=== PATIENT | female | born 1960 | race Caucasian/White ===

== ENCOUNTER 2022-10-17 10:23 | Observation (INO) | payer BC ==
[2022-10-17] MEDS ORDERED: Sodium Chloride 0.9% 1000 ML 1,000 ML IV STA (11:01)
[2022-10-17] MEDS ORDERED: Sodium Chloride 0.9% 1000 ML 1,000 ML ONE (11:13)
--- NOTE | 2022-10-17 11:13 | ERPHSYRPT ---
- History of Present Illness Time Seen by Provider: 10/17/22 10:29 Source: patient Exam Limitations: no limitations Patient Subjective Stated Complaint: pt here for vomiting and feels like shes unsteady and dizzy, had a sudden onset of back left head pain that lasted for s econds. she states she has had ringing in ears for about 3 months now and is waiting on an MRI Triage Nursing Assessment: pt alert,oreinted resp easy, skin w/d/p, able to un dress self and get self in bed, slight edema to lower legs. no facial drooping Physician History: Patient here with strokelike symptoms. Patient states that she woke up with dizziness. Folic she was leaning to her left. Nausea. Patient states that she has felt unwell for a few days. Patient was recently treated for possible ear infection. Ringing in her ears. States that she has felt somewhat dizzy before today as well. No chest pain, shortness of breath, nausea, vomiting. Allergies/Adverse Reactions: Penicillins Allergy (Verified 10/17/22 11:01) Home Medications: Amlodipine Besylate [Norvasc] 5 mg PO DAILY 10/17/22 [History] Clopidogrel Bisulfate [Clopidogrel] 75 mg PO DAILY 10/17/22 [History] Dapagliflozin Propanediol [Farxiga] 1 ea DAILY 10/17/22 [History] Glipizide 10 mg [Glucotrol 10 MG] 10 mg PO DAILY 10/17/22 [History] Hydrochlorothiazide 25 mg [hydroDIURIL 25 MG] 12.5 mg PO DAILY 10/17/22 [History] Metformin HCl 500 mg [Glucophage 500 MG] 1,000 mg PO BIDWM 10/17/22 [History] Omeprazole Magnesium [Prilosec Otc] 20 mg PO DAILY 10/17/22 [History] Spironolactone 25 mg [Aldactone 25 MG] 50 mg PO DAILY 10/17/22 [History] Hx Influenza Vaccination/Date Given: Yes Hx Pneumococcal Vaccination/Date Given: Yes Immunizations Up to Date: Yes Travel Risk - International Travel Have you traveled outside of the country in past 3 weeks: No - Coronavirus Screening Are you exhibiting any of the following symptoms?: No Close contact with a COVID-19 positive Pt in past 14-21 Days: No - Vaccine Status Have you recieved a Covid-19 vaccination: Yes Bank Advisor: Moderna - Vaccination Dates Date of 2cond Vaccination (if applicable): 2020 - Review of Systems Constitutional: No Fever, No Chills Eyes: No Symptoms Ears, Nose, & Throat: No Symptoms Respiratory: No Cough, No Dyspnea Cardiac: No Chest Pain, No Edema, No Syncope Abdominal/Gastrointestinal: No Abdominal Pain, No Nausea, No Vomiting, No Diarrhea Genitourinary Symptoms: No Dysuria Musculoskeletal: No Back Pain, No Neck Pain Skin: No Rash Neurological: Dizziness, No Focal Weakness, No Sensory Changes Psychological: No Symptoms Endocrine: No Symptoms All Other Systems: Reviewed and Negative - Past Medical History Neurological History: Migraines, TIA, Other Cardiac History: Hypertension Respiratory History: No Pertinent History Endocrine Medical History: Diabetes Type II Musculoskeletal History: Arthritis Other Medical History: Pt notes undiagnosed TIA found with recent MRI after a fall at work. R hip fx 2017 - Past Surgical History Past Surgical History: No - Social History Smoking Status: Never smoker Exposure to second hand smoke: No Drug Use: none Patient Lives Alone: No - Nursing Vital Signs Nursing Vital Signs: Initial Vital Signs Temperature 98.2 F 10/17/22 11:00 Pulse Rate 79 10/17/22 11:00 Respiratory Rate 18 10/17/22 11:00 Blood Pressure 139/75 10/17/22 11:00 O2 Sat by Pulse Oximetry 97 10/17/22 11:00 Pain Scale Pain Intensity 0 - Physical Exam General Appearance: no apparent distress, alert Eye Exam: PERRL/EOMI, eyes nml inspection Ears, Nose, Throat Exam: normal ENT inspection, TMs normal, pharynx normal, moist mucous membranes Neck Exam: normal inspection, non-tender, supple, full range of motion Respiratory Exam: normal breath sounds, lungs clear, No respiratory distress Cardiovascular Exam: regular rate/rhythm, normal heart sounds, normal peripheral pulses Gastrointestinal/Abdomen Exam: soft, normal bowel sounds, No tenderness, No mass Back Exam: normal inspection, normal range of motion, No CVA tenderness, No vertebral tenderness Extremity Exam: normal inspection, normal range of motion, pelvis stable Neurologic Exam: alert, oriented x 3, cooperative, normal mood/affect, nml cerebellar function, nml station & gait, sensation nml, No motor deficits Skin Exam: normal color, warm, dry, No rash Lymphatic Exam: No adenopathy SpO2 Interpretation: normal SpO2: 97 Comments: 10/17/22 11:13 Motor: There is no pronator drift of out-stretched arms. Muscle bulk and tone are normal. Strength is full bilaterally. Reflexes: Reflexes are 2+ and symmetric at the biceps, triceps, knees, and ankles. Plantar responses are flexor. Sensory: Light touch sense are intact in bilateral upper and lower extremities. There is no sign of neglect. Coordination: Rapid alternating movements are intact. There is no dysmetria on [id number] and [id number]. There are no abnormal or extraneous movements. Romberg is absent. Gait/Stance: Posture is normal. Gait is steady with normal steps, base, arm swing, and turning. Heel and toe walking are normal. Tandem gait is normal. - Course Nursing assessment & vital signs reviewed: Yes EKG Interpreted by Me: Sinus Rhythm Ordered Tests: Active Orders 24 hr Category Date Time Status Code Status Order ROUTINE Care 10/17/22 13:21 Active EKG-ER Only STAT Care 10/17/22 11:01 Active IV Care Q6H Care 10/17/22 13:21 Active IV Insertion STAT Care 10/17/22 11:01 Active NPO (ED) STAT Care 10/17/22 11:[address] in Observation ROUTINE Care 10/17/22 13:21 Active CHEST 2 VIEWS (PA AND LAT) Stat Exams 10/17/22 11:[address] ANGIOGRAPHY NECK [CT] Stat Exams 10/17/22 11:02 Completed CTA HEAD W AND/OR WO CONTRAST [CT] Stat Exams 10/17/22 11:03 Completed MRI BRAIN W/O CONTRAST [MRI] Stat Exams 10/17/22 13:22 Ordered CBC W DIFF AM.LAB Lab 10/18/22 04:00 Ordered CBC W DIFF Stat Lab 10/17/22 11:01 Completed CMP AM.LAB Lab 10/18/22 04:00 Ordered CULTURE,URINE Stat Lab 10/17/22 12:23 Received PROTIME WITH INR Stat Lab 10/17/22 11:00 Completed PTT Stat Lab 10/17/22 11:00 Completed TROPONIN Q4H Lab 10/17/22 13:32 Received TROPONIN Q4H Lab 10/17/22 17:30 Ordered TROPONIN Q4H Lab 10/17/22 21:30 Ordered UA W/RFX UR CULTURE Stat Lab 10/17/22 12:23 Completed Transfer Order Routine Transfer 10/17/22 Ordered Medication Summary Generic Name Dose Route Start Last Admin Trade Name Elana PRN Reason Stop Dose Admin Acetaminophen 650 mg 10/17/22 13:20 Acetaminophen 325 Mg Tablet PO 11/16/22 13:19 Q4H PRN PRN PAIN AND/OR FEVER Discontinued Medications Generic Name Dose Route Start Last Admin Trade Name Elana PRN Reason Stop Dose Admin Sodium Chloride 1,000 mls @ 999 mls/hr 10/17/22 11:01 10/17/22 12:39 Sodium Chloride 0.9% 1000 Ml IV 10/17/22 12:01 Infused .Q1H1M STA Infusion Sodium Chloride Confirm 10/17/22 11:13 Sodium Chloride 0.9% 1000 Ml Administered 10/17/22 11:14 Dose 1,000 mls @ ud .ROUTE .STK-MED ONE Meclizine HCl 25 mg 10/17/22 13:20 Meclizine Hcl 25 Mg Tablet PO 10/17/22 13:21 STAT ONE Lab/Rad Data: Laboratory Result Diagrams 10/17/22 11:01 10/17/22 11:00 Laboratory Results 10/17/22 10/17/22 10/17/22 Range/Units 12:23 11:01 11:00 WBC 6.3 (4.0-10.5) x10^3/uL RBC 5.14 (4.1-5.4) x10^6/uL Hgb 13.0 (12.0-16.0) g/dL Hct 42.2 (35-47) % MCV 82.1 (78-100) fL MCH 25.3 L (26-32) pg MCHC 30.8 L (32-36) g/dL RDW 14.5 H (11.5-14.0) % Plt Count 172 (150-450) x10^3/uL MPV 11.1 H (7.5-11.0) fL Gran % 79.6 H (36.0-66.0) % Immature Gran % (Auto) 0.6 H (0.00-0.4) % Nucleat RBC Rel Count 0.0 (0.00-0.1) % Eos # (Auto) 0.08 (0-0.5) x10^3/uL Immature Gran # (Auto) 0.04 H (0.00-0.03) x10^3u/L Absolute Lymphs (auto) 0.67 L (1.0-4.6) x10^3/uL Absolute Monos (auto) 0.44 (0.0-1.3) x10^3/uL Absolute Nucleated RBC 0.00 (0.00-0.01) x10^3u/L Lymphocytes % 10.6 L (24.0-44.0) % Monocytes % 7.0 (0.0-12.0) % Eosinophils % 1.3 (0.00-5.0) % Basophils % 0.9 (0.0-0.4) % Absolute Granulocytes 5.03 (1.4-6.9) x10^3/uL Basophils # 0.06 (0-0.4) x10^3/uL PT 11.1 (9.4-12.5) SECONDS INR 1.02 (0.8-3.0) APTT 25.5 (25.1-36.5) SECONDS Sodium Direct (138-146) mmol/L Potassium (3.5-4.9) mmol/L Chloride (98-109) mmol/L Carbon Dioxide (24-29) mmol/L Venous BUN (8-26) mg/dL Creatinine (0.6-1.3) mg/dL Glucose (70-105) mg/dL Ionized Calcium (1.12-1.32) mmol/L Urine Color Yellow (Yellow) Urine Appearance Clear (Clear) Urine pH 7.0 (4.6-8.0) Ur Specific [place] >=1.030 A (1.005-1.030) Urine Protein Negative (Negative) Urine Glucose (UA) >=1000 A (Negative) mg/dL Urine Ketones 15 A (Negative) Urine Blood Negative (Negative) Urine Nitrite Negative (Negative) Urine Bilirubin Negative (Negative) Urine Urobilinogen 0.2 (0.2) mg/dL Ur Leukocyte Esterase Small A (Negative) U Hyaline Cast (Auto) NONE SEEN (0-2) /LPF Urine Microscopic RBC 0-2 (0-5) /HPF Urine Microscopic WBC 21-50 A (0-5) /HPF Ur Epithelial Cells None Seen (None Seen) /HPF Urine Bacteria Many A (None Seen) /HPF Urine Culture Reflexed YES (NO) 10/17/22 Range/Units 11:00 WBC (4.0-10.5) x10^3/uL RBC (4.1-5.4) x10^6/uL Hgb (12.0-16.0) g/dL Hct (35-47) % MCV (78-100) fL MCH (26-32) pg MCHC (32-36) g/dL RDW (11.5-14.0) % Plt Count (150-450) x10^3/uL MPV (7.5-11.0) fL Gran % (36.0-66.0) % Immature Gran % (Auto) (0.00-0.4) % Nucleat RBC Rel Count (0.00-0.1) % Eos # (Auto) (0-0.5) x10^3/uL Immature Gran # (Auto) (0.00-0.03) x10^3u/L Absolute Lymphs (auto) (1.0-4.6) x10^3/uL Absolute Monos (auto) (0.0-1.3) x10^3/uL Absolute Nucleated RBC (0.00-0.01) x10^3u/L Lymphocytes % (24.0-44.0) % Monocytes % (0.0-12.0) % Eosinophils % (0.00-5.0) % Basophils % (0.0-0.4) % Absolute Granulocytes (1.4-6.9) x10^3/uL Basophils # (0-0.4) x10^3/uL PT (9.4-12.5) SECONDS INR (0.8-3.0) APTT (25.1-36.5) SECONDS Sodium Direct 136 L (138-146) mmol/L Potassium 4.1 (3.5-4.9) mmol/L Chloride 99 (98-109) mmol/L Carbon Dioxide 26 (24-29) mmol/L Venous BUN 36 H (8-26) mg/dL Creatinine 1.0 (0.6-1.3) mg/dL Glucose 252 H (70-105) mg/dL Ionized Calcium 1.19 (1.12-1.32) mmol/L Urine Color (Yellow) Urine Appearance (Clear) Urine pH (4.6-8.0) Ur Specific [place] (1.005-1.030) Urine Protein (Negative) Urine Glucose (UA) (Negative) mg/dL Urine Ketones (Negative) Urine Blood (Negative) Urine Nitrite (Negative) Urine Bilirubin (Negative) Urine Urobilinogen (0.2) mg/dL Ur Leukocyte Esterase (Negative) U Hyaline Cast (Auto) (0-2) /LPF Urine Microscopic RBC (0-5) /HPF Urine Microscopic WBC (0-5) /HPF Ur Epithelial Cells (None Seen) /HPF Urine Bacteria (None Seen) /HPF Urine Culture Reflexed (NO) - Progress Progress: improved - Departure Departure Disposition: Observation Clinical Impression: Stroke-like episode, UTI (urinary tract infection) Condition: Stable Critical Care Time: No Referrals: COTY QUINTANILLA [Primary Care Provider] - Follow up/PCP as directed
[2022-10-17 11:25] LABS: Absolute Neutrophil Ct (ANC) 5.03 x10^3/uL (1.4-6.9); BASOPHIL % 0.9 % (0.0-0.4); Basophil (Absolute #) 0.06 x10^3/uL (0-0.4); Eosinophil % 1.3 % (0.00-5.0); Eosinophil (Absolute #) 0.08 x10^3/uL (0-0.5); Hematocrit 42.2 % (35-47); IMMATURE GRAN # 0.04 x10^3u/L (0.00-0.03); IMMATURE GRAN % 0.6 % (0.00-0.4); Lymphocyte (Absolute #) 0.67 x10^3/uL (1.0-4.6); Lymphocytes % 10.6 % (24.0-44.0); Mean Cell Volume 82.1 fL (78-100); Mean Corpuscular Hemoglobin 25.3 pg (26-32); Mean Corpuscular Hgb Concent. 30.8 g/dL (32-36); Mean Platelet Volume 11.1 fL (7.5-11.0); Monocyte (Absolute #) 0.44 x10^3/uL (0.0-1.3); Neutrophil % 79.6 % (36.0-66.0); Platelet Count 172 x10^3/uL (150-450); Red Blood Count 5.14 x10^6/uL (4.1-5.4); Red Cell Distribution Width 14.5 % (11.5-14.0); White Blood Count 6.3 x10^3/uL (4.0-10.5)
[2022-10-17] MEDS ORDERED: HOLD METFORMIN PRODUCTS FOR 48 HOURS MC SCH (11:30)
[2022-10-17 11:39] LABS: INR 1.02 (0.8-3.0); PROTIME 11.1 SECONDS (9.4-12.5); PTT 25.5 SECONDS (25.1-36.5)
[2022-10-17 11:58] LABS: ISTAT K 4.1 mmol/L (3.5-4.9); ISTAT iCA 1.19 mmol/L (1.12-1.32)
--- NOTE | 2022-10-17 12:12 | XRAY ---
CLINICAL HISTORY:PNA COMPARISON:None. TECHNIQUES:X-ray of the chest showing 2 views: PA and lateral views. FINDINGS: Radiographic examination of the chest demonstrates clear lungs. Normal configuration of the mediastinum. The melecio are normal in size and position. The cardiac size is normal. The costophrenic and cardiophrenic angles are clear. Retrocardiac and retrosternal spaces are normal. Degenerative changes are seen in the visualized spine, the rest of the bony thorax is unremarkable. IMPRESSION: No gross abnormality. Electronically Signed by: Susan Chong MD. (10/17/2022 11:07:21 SECURITY SUPERVISOR)
--- NOTE | 2022-10-17 12:42 | XRAY ---
CLINICAL HISTORY:Stroke, aneurysm COMPARISON:None. TECHNIQUES:Axial with and without contrast CTA scan of the brain was performed from the skull base to the high parietal region. DLP: [id number]. FINDINGS: Small area of encephalomalacia is seen in the right frontal lobe, adjacent to the frontal horn of right lateral ventricle, extending to the right basal ganglia region, involving the right caudate lobe and anterior limb of internal capsule. it is seen associated with gliotic changes, causing mild dilatation of right frontal horn. This likely represents chronic ischemic infarction/old lacunar infarct. Few other old lacunar infarcts are also seen in bilateral basal ganglia regions. Assemetry is noted in the size of lateral ventricles. [place]-white matter differentiation is maintained. No midline shifts or deformity. No intracerebral or extra axial hematoma. No evidence of ventricular dilatation. Normal CT appearance of the posterior fossa structures namely the cerebellar hemispheres, brainstem and cerebellar peduncles. The IACs are unremarkable. The cerebello-pontine angles are clear. The pituitary gland, the pineal gland, the optic chiasm is unremarkable. The osseous structures in the skull base are unremarkable. No definite calvarium fractures. Th scanned paranasal sinuses are clear. No abnormal enhancement seen on postcontrast images. No aneurysm seen. The internal carotid, cerebral arteries show normal caliber and course. Each carotid siphon is normal, showing no displacement or extrinsic compression. The middle and anterior cerebral arteries arise normally from the internal carotid artery on each side appear unremarkable. Basilar and bilateral posterior cerebral arteries show normal caliber. No significant area of vascular narrowing or dilatation noted. No evidence of anterovenous malformation or fistulous communication noted. IMPRESSION: No evidence of established acute territorial infarction or acute haemorrhage. Few small old /chronic ischemic infarctions/lacunar infarctions dior seen as described above. MRI brain with stroke protocol with DWI/ADC sequences suggested for further evaluation if clinically indicated. No abnormal enhancement seen on postcontrast images. ED department was informed that the Stroke is Negative. Electronically Signed by: Susan Chong MD. ( 10/17/2022 11:36:49 CARPET OR RUG LAYER HELPER)
[2022-10-17 13:13] LABS: Appearance Clear (Clear); Bacteria Many /HPF (None Seen); Bilirubin Negative (Negative); Blood Negative (Negative); Epithelial Cells None Seen /HPF (None Seen); Glucose, Urine >=1000 mg/dL (Negative); Hyaline Casts NONE SEEN /LPF (0-2); Ketones 15 (Negative); Leukocyte Esterase Small (Negative); Nitrite Negative (Negative); Protein,Urine Dip Negative (Negative); RBC 0-2 /HPF (0-5); Specific Gravity >=1.030 (1.005-1.030); Urobilinogen 0.2 mg/dL (0.2); WBC 21-50 /HPF (0-5)
[2022-10-17 13:14] LABS: ADD URINE CULTURE? YES (NO)
[2022-10-17] MEDS ORDERED: TYLENOL 325 MG PO PRN (13:20)
[2022-10-17] MEDS ORDERED: ANTIVERT 25 MG PO ONE (13:20)
[2022-10-17] MEDS ORDERED: ROCEPHIN 1 Gm-D5w 50 ml Bag** 1 G/50 ML IVPB IV STA (13:41)
--- NOTE | 2022-10-17 13:41 | XRAY ---
CLINICAL HISTORY:Vertebral artery dissection COMPARISON:None; TECHNIQUES:CTA neck with intravenous contrast administration was performed. Images were acquired in axial cuts with coronal, sagittal and 3D reconstructions. FINDINGS: The aortic arch presents smooth abreu and a normal configuration. Common origin of the brachiocephalic and left common carotid artery noted representing bovine arch normal anatomical variant. The brachio-cephalic trunk undergoes a normal division into the subclavian artery and common carotid artery. Calcified plaques are seen at carotid bulbs bilaterally, more on the left side without causing significant stenosis (less than 20%). Left calcified plaque at carotid bifurcation measures 6.8 x 5.1mm. Both common carotid arteries have otherwise normal caliber. Both carotid bifurcation occurs at the normal level. The external carotid artery and internal carotid artery on both sides have no caliber irregularity. The vessels show homogeneous intraluminal enhancement. The vertebral arteries appear unremarkable. The vertebral arteries are symmetrically disposed and take a normal course. They show normal luminal diameter with no filling defect or caliber irregularities as far as basilar artery. At C5-C6 level, the left paracentral disc osteophyte complex with hypertrophy of the uncovertebral joint is noted causing significant neural foramen narrowing. IMPRESSION: Normal CT angiography of the neck. No evidence of aneurysm or significant stenosis. Small calcified plaques are seen at carotid bulbs bilaterally, more on the left side without causing significant stenosis less than 20%. At C5-C6 level, left paracentral disc osteophyte complex with hypertrophy of the uncovertebral joint is noted causing significant left neural foramen narrowing, would recommend MRI cervical spine for further evaluation. Electronically Signed by: Susan Chong MD. (10/17/2022 12:31:36 COOLER SERVICER)
[2022-10-17] MEDS ORDERED: BABY ASPIRIN 81 MG CHEW PO ONE (14:00)
[2022-10-17] MEDS ORDERED: ANTIVERT 25 MG ONE (14:40)
[2022-10-17] MEDS ORDERED: BABY ASPIRIN 81 MG CHEW ONE (14:40)
--- NOTE | 2022-10-17 15:41 | XRAY ---
CLINICAL HISTORY:stroke like symptoms COMPARISON:None. TECHNIQUES:Multiplanarr and multiple sequence imaging of the brain was performed without IV contrast. FINDINGS: At least 3-4 tiny CSF signal intensity focal lesions are seen in the right caudate nucleus and adjacent periventricular white matter, The largest 1 of these lesions measures about 7.2 x 6.1 mm in size. Findings are consistent with perivascular spaces. There is symmetrical T2-weighted and FLAIR hyperintensity Seen in the subcortical and periventricular white matter of both frontal lobes, not showing any restricted diffusionconsistent with chronic small vessel ischemic changes. The neuro-parenchyma is otherwise normal. No acute infarct is seen as visualized on the diffusion-weighted images. No abnormal density is seen in the basal ganglia, thalami, brainstem or cerebellum. The ventricular system and subarachnoid CSF spaces are normal. No midline shift is seen. The visualized calvarium orbits and paranasal sinuses are normal. IMPRESSION: No acute infarct is noted. 3-4 tiny CSF signal intensity lesions in the right caudate nucleus and adjacent periventricular white matterperivascular spaces and gliosis. Chronic small vessel ischemic changes in bilateral frontal lobes. Electronically Signed by: Susan Chong MD. ( 10/17/2022 14:34:48 INSTRUMENTATION TECHNOLOGIST)
[2022-10-17] MEDS ORDERED: ANTIVERT 25 MG PO PRN (17:09)
--- NOTE | 2022-10-17 17:11 | PCM.HP ---
History of Present Illness - Chief Complaint Chief Complaint: STROKE LIKE SYMPTOMS, UTI History of Present Illness: is a 62 year old female patient of Dr Mcmullen experiencing intermittent vertigo for the last month, today was the 3rd episode and most severe. all 3 have occurred when she stands from sitting and she describes a true vertigo or spinning sensation and wanders to the left. she denies visual changes, no numbness, tingling or weakness in the extremities, no slurred speech or difficulty swallowing. - Review of Systems Constitutional: No Fever, No Chills Respiratory: No Cough, No Short Of Breath Cardiac: No Chest Pain, No Edema, No Syncope Abdominal/Gastrointestinal: No Abdominal Pain, No Nausea, No Vomiting, No Diarrhea Neurological: Vertigo, No Focal Weakness, No Parasthesia, No Sensory Changes, No Speech Changes All Other Systems: Reviewed and Negative Medications & Allergies Home Medications: Home Medication List Amlodipine Besylate [Norvasc] 5 mg PO DAILY 10/17/22 [History Confirmed 10/17/22] Clopidogrel Bisulfate [Clopidogrel] 75 mg PO DAILY 10/17/22 [History Confirmed 10/17/22] Dapagliflozin Propanediol [Farxiga] 10 mg PO DAILY 10/17/22 [History Confirmed 10/17/22] Glipizide 10 mg [Glucotrol 10 MG] 10 mg PO BID 10/17/22 [History Confirmed 10/17/22] Hydrochlorothiazide 25 mg [hydroDIURIL 25 MG] 12.5 mg PO DAILY 10/17/22 [History Confirmed 10/17/22] Metformin HCl 500 mg [Glucophage 500 MG] 1,000 mg PO BIDWM 10/17/22 [History Confirmed 10/17/22] Omeprazole Magnesium [Prilosec Otc] 20 mg PO DAILY 10/17/22 [History Confirmed 10/17/22] Spironolactone 25 mg [Aldactone 25 MG] 50 mg PO DAILY 10/17/22 [History Confirmed 10/17/22] Allergies/Adverse Reactions: Allergies Allergy/AdvReac Type Severity Reaction Status Date / Time Penicillins Allergy Verified 10/17/22 11:01 - Past Medical History Past Medical History: Yes Neurological History: Migraines, TIA, Other ENT History: No Pertinent History Cardiac History: Hypertension Respiratory History: No Pertinent History Endocrine Medical History: Diabetes Type II Musculoskelatal History: Arthritis GI Medical History: No Pertinent History History: No Pertinent History Pyscho-Social History: No Pertinent History Reproductive Disorders: No Pertinent History Comment: dx with polio at 9mo old. Pt notes undiagnosed TIA found with recent MRI after a fall at work. vertigo. R hip fx 2018, and femur fx - Past Surgical History Past Surgical History: Yes Neuro Surgical History: No Pertinent History Cardiac History: No Pertinent History Respiratory Surgery: No Pertinent History GI Surgical History: No Pertinent History Musculskeletal Surgical Hx: Orthopedic Surgery Female Surgical History: No Pertinent History Other Surgical History: isaac knees, R femur - Social History Smoking Status: Never smoker Exposure to second hand smoke: No Alcohol: Occasionally Drug Use: none - Physical Exam Vital Signs: Vital Signs - 24 hr Temp Pulse Resp BP BP Pulse Ox 10/17/22 16:00 98.0 F 62 16 134/66 97 10/17/22 15:01 98.0 F 62 16 134/66 97 10/17/22 15:00 98.0 F 62 16 134/66 97 10/17/22 13:42 97 10/17/22 13:33 132/80 10/17/22 13:00 98.0 F 62 16 128/69 134/66 97 10/17/22 12:30 71 13 117/81 98 10/17/22 12:00 70 17 122/73 99 10/17/22 11:37 77 14 127/86 97 10/17/22 11:00 98.2 F 76 18 139/75 139/75 97 General Appearance: no apparent distress Neurologic Exam: alert, oriented x 3, cooperative, 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 Eye Exam: PERRL/EOMI Ears, Nose, Throat Exam: other (dull tm isaac) Respiratory Exam: normal breath sounds, lungs clear, No respiratory distress Cardiovascular Exam: regular rate/rhythm, normal heart sounds, normal peripheral pulses Gastrointestinal/Abdomen Exam: soft, normal bowel sounds, No tenderness, No mass Extremity Exam: normal inspection, normal range of motion, pelvis stable Skin Exam: normal color, warm, dry, No rash Results - Labs Lab/Micro Results: Lab Results-Last 24 Hours 10/17/22 10/17/22 10/17/22 Range/Units 11:00 11:00 11:01 WBC 6.3 (4.0-10.5) x10^3/uL RBC 5.14 (4.1-5.4) x10^6/uL Hgb 13.0 (12.0-16.0) g/dL Hct 42.2 (35-47) % MCV 82.1 (78-100) fL MCH 25.3 L (26-32) pg MCHC 30.8 L (32-36) g/dL RDW 14.5 H (11.5-14.0) % Plt Count 172 (150-450) x10^3/uL MPV 11.1 H (7.5-11.0) fL Gran % 79.6 H (36.0-66.0) % Immature Gran % (Auto) 0.6 H (0.00-0.4) % Nucleat RBC Rel Count 0.0 (0.00-0.1) % Eos # (Auto) 0.08 (0-0.5) x10^3/uL Immature Gran # (Auto) 0.04 H (0.00-0.03) x10^3u/L Absolute Lymphs (auto) 0.67 L (1.0-4.6) x10^3/uL Absolute Monos (auto) 0.44 (0.0-1.3) x10^3/uL Absolute Nucleated RBC 0.00 (0.00-0.01) x10^3u/L Lymphocytes % 10.6 L (24.0-44.0) % Monocytes % 7.0 (0.0-12.0) % Eosinophils % 1.3 (0.00-5.0) % Basophils % 0.9 (0.0-0.4) % Absolute Granulocytes 5.03 (1.4-6.9) x10^3/uL Basophils # 0.06 (0-0.4) x10^3/uL PT 11.1 (9.4-12.5) SECONDS INR 1.02 (0.8-3.0) APTT 25.5 (25.1-36.5) SECONDS Sodium Direct 136 L (138-146) mmol/L Potassium 4.1 (3.5-4.9) mmol/L Chloride 99 (98-109) mmol/L Carbon Dioxide 26 (24-29) mmol/L Venous BUN 36 H (8-26) mg/dL Creatinine 1.0 (0.6-1.3) mg/dL Glucose 252 H (70-105) mg/dL Ionized Calcium 1.19 (1.12-1.32) mmol/L Troponin (0.00-0.03) ng/mL Urine Color (Yellow) Urine Appearance (Clear) Urine pH (4.6-8.0) Ur Specific [place] (1.005-1.030) Urine Protein (Negative) Urine Glucose (UA) (Negative) mg/dL Urine Ketones (Negative) Urine Blood (Negative) Urine Nitrite (Negative) Urine Bilirubin (Negative) Urine Urobilinogen (0.2) mg/dL Ur Leukocyte Esterase (Negative) U Hyaline Cast (Auto) (0-2) /LPF Urine Microscopic RBC (0-5) /HPF Urine Microscopic WBC (0-5) /HPF Ur Epithelial Cells (None Seen) /HPF Urine Bacteria (None Seen) /HPF Urine Culture Reflexed (NO) 10/17/22 10/17/22 Range/Units 12:23 13:32 WBC (4.0-10.5) x10^3/uL RBC (4.1-5.4) x10^6/uL Hgb (12.0-16.0) g/dL Hct (35-47) % MCV (78-100) fL MCH (26-32) pg MCHC (32-36) g/dL RDW (11.5-14.0) % Plt Count (150-450) x10^3/uL MPV (7.5-11.0) fL Gran % (36.0-66.0) % Immature Gran % (Auto) (0.00-0.4) % Nucleat RBC Rel Count (0.00-0.1) % Eos # (Auto) (0-0.5) x10^3/uL Immature Gran # (Auto) (0.00-0.03) x10^3u/L Absolute Lymphs (auto) (1.0-4.6) x10^3/uL Absolute Monos (auto) (0.0-1.3) x10^3/uL Absolute Nucleated RBC (0.00-0.01) x10^3u/L Lymphocytes % (24.0-44.0) % Monocytes % (0.0-12.0) % Eosinophils % (0.00-5.0) % Basophils % (0.0-0.4) % Absolute Granulocytes (1.4-6.9) x10^3/uL Basophils # (0-0.4) x10^3/uL PT (9.4-12.5) SECONDS INR (0.8-3.0) APTT (25.1-36.5) SECONDS Sodium Direct (138-146) mmol/L Potassium (3.5-4.9) mmol/L Chloride (98-109) mmol/L Carbon Dioxide (24-29) mmol/L Venous BUN (8-26) mg/dL Creatinine (0.6-1.3) mg/dL Glucose (70-105) mg/dL Ionized Calcium (1.12-1.32) mmol/L Troponin 0.00 (0.00-0.03) ng/mL Urine Color Yellow (Yellow) Urine Appearance Clear (Clear) Urine pH 7.0 (4.6-8.0) Ur Specific [place] >=1.030 A (1.005-1.030) Urine Protein Negative (Negative) Urine Glucose (UA) >=1000 A (Negative) mg/dL Urine Ketones 15 A (Negative) Urine Blood Negative (Negative) Urine Nitrite Negative (Negative) Urine Bilirubin Negative (Negative) Urine Urobilinogen 0.2 (0.2) mg/dL Ur Leukocyte Esterase Small A (Negative) U Hyaline Cast (Auto) NONE SEEN (0-2) /LPF Urine Microscopic RBC 0-2 (0-5) /HPF Urine Microscopic WBC 21-50 A (0-5) /HPF Ur Epithelial Cells None Seen (None Seen) /HPF Urine Bacteria Many A (None Seen) /HPF Urine Culture Reflexed YES (NO) - Radiology Impressions Radiology Exams & Impressions: Radiology Procedures Category Date Time Status CHEST 2 VIEWS (PA AND LAT) Stat Exams 10/17/22 11:[address] ANGIOGRAPHY NECK [CT] Stat Exams 10/17/22 11:02 Completed CTA HEAD W AND/OR WO CONTRAST [CT] Stat Exams 10/17/22 11:03 Completed MRI BRAIN W/O CONTRAST [MRI] Stat Exams 10/17/22 13:22 Completed Assessment/Plan (1) Vertigo Current Visit: Yes Status: Acute Assessment & Plan: add meclizine, MRI with no infarct, patient is normotensive and has a nonfocal neuro exam. vertigo has currently resolved, was given meclizine in ER Code(s): R42 - DIZZINESS AND GIDDINESS (2) UTI (urinary tract infection) Current Visit: Yes Status: Acute Assessment & Plan: culture pending, received rocephin in ER. if growth will continue treatment Code(s): N39.0 - URINARY TRACT INFECTION, SITE NOT SPECIFIED
[2022-10-17] MEDS ORDERED: PLAVIX Tablet PO SCH (18:00)
[2022-10-17] MEDS ORDERED: HUMALOG SQ PRN (23:54)
[2022-10-18] MEDS ORDERED: HUMALOG SQ PRN (00:05)
[2022-10-18 06:20] LABS: Absolute Neutrophil Ct (ANC) 2.99 x10^3/uL (1.4-6.9); BASOPHIL % 1.3 % (0.0-0.4); Basophil (Absolute #) 0.06 x10^3/uL (0-0.4); Eosinophil % 2.5 % (0.00-5.0); Eosinophil (Absolute #) 0.12 x10^3/uL (0-0.5); Hematocrit 38.2 % (35-47); Hemoglobin 11.9 g/dL (12.0-16.0); IMMATURE GRAN # 0.02 x10^3u/L (0.00-0.03); IMMATURE GRAN % 0.4 % (0.00-0.4); Lymphocyte (Absolute #) 1.02 x10^3/uL (1.0-4.6); Lymphocytes % 21.3 % (24.0-44.0); Mean Cell Volume 81.3 fL (78-100); Mean Corpuscular Hemoglobin 25.3 pg (26-32); Mean Corpuscular Hgb Concent. 31.2 g/dL (32-36); Mean Platelet Volume 11.2 fL (7.5-11.0); Monocyte (Absolute #) 0.58 x10^3/uL (0.0-1.3); Monocytes % 12.1 % (0.0-12.0); Neutrophil % 62.4 % (36.0-66.0); Platelet Count 159 x10^3/uL (150-450); Red Cell Distribution Width 14.7 % (11.5-14.0); White Blood Count 4.8 x10^3/uL (4.0-10.5)
[2022-10-18 06:47] LABS: ALBUMIN 3.8 g/dL (3.5-5.0); ALKALINE PHOSPHATASE 87 U/L (38-126); ANION GAP 13.7 MEQ/L (5-15); BLOOD UREA NITROGEN 24 mg/dL (7-17); CHLORIDE 102 mmol/L (98-107); Calcium 8.7 mg/dL (8.4-10.2); Carbon Dioxide 26 mmol/L (22-30); Creatinine 1 0.86 mg/dL (0.52-1.04); EST GLOMERULAR FILTRATION RATE > 60.0 ML/MIN; Glucose 137 mg/dL (74-106); Potassium 3.9 mmol/L (3.5-5.1); SGOT/AST 35 U/L (14-36); SGPT/ALT 23 U/L (0-35); SODIUM 138 mmol/L (137-145); Total Protein 6.8 g/dL (6.3-8.2)
[2022-10-18 08:01] VITALS: BP 129/71; PULSE 77; O2SAT 96
--- NOTE | 2022-10-18 09:34 | PCM.DS ---
Discharge Summary Date of Admission: 10/17/22 14:50 Admitting Physician: YASMIN PINEDA Primary Care Provider: COTY QUINTANILLA Allergies Allergies Penicillins Allergy (Verified 10/17/22 11:01) Hospital Summary - Hospital Course Hospital Course: patient admitted with severe vertigo, concern for TIA. she has no motor or sensory deficits, no visual changes or speech difficulties and was normotensive on arrival. MRI shows no infarct, clinical dx BPPV, responded to meclizine - Vitals & Intake/Output Vital Signs: Vital Signs Temperature 97.2 F 10/18/22 08:00 Pulse Rate 77 10/18/22 08:00 Respiratory Rate 18 10/18/22 08:00 Blood Pressure 129/71 10/18/22 08:00 O2 Sat by Pulse Oximetry 96 10/18/22 08:00 Intake & Output: Intake & Output 10/15/22 10/16/22 10/17/22 10/18/22 11:59 11:59 11:59 11:59 Intake Total 600 Balance 600 Weight 92.7 kg 93.2 kg - Lab Result Diagrams: 10/18/22 05:49 10/18/22 05:39 Lab Results-Last 24 Hrs: Lab Results-Last 24 Hours 10/17/22 10/17/22 10/17/22 Range/Units 11:00 11:00 11:01 WBC 6.3 (4.0-10.5) x10^3/uL RBC 5.14 (4.1-5.4) x10^6/uL Hgb 13.0 (12.0-16.0) g/dL Hct 42.2 (35-47) % MCV 82.1 (78-100) fL MCH 25.3 L (26-32) pg MCHC 30.8 L (32-36) g/dL RDW 14.5 H (11.5-14.0) % Plt Count 172 (150-450) x10^3/uL MPV 11.1 H (7.5-11.0) fL Gran % 79.6 H (36.0-66.0) % Immature Gran % (Auto) 0.6 H (0.00-0.4) % Nucleat RBC Rel Count 0.0 (0.00-0.1) % Eos # (Auto) 0.08 (0-0.5) x10^3/uL Immature Gran # (Auto) 0.04 H (0.00-0.03) x10^3u/L Absolute Lymphs (auto) 0.67 L (1.0-4.6) x10^3/uL Absolute Monos (auto) 0.44 (0.0-1.3) x10^3/uL Absolute Nucleated RBC 0.00 (0.00-0.01) x10^3u/L Lymphocytes % 10.6 L (24.0-44.0) % Monocytes % 7.0 (0.0-12.0) % Eosinophils % 1.3 (0.00-5.0) % Basophils % 0.9 (0.0-0.4) % Absolute Granulocytes 5.03 (1.4-6.9) x10^3/uL Basophils # 0.06 (0-0.4) x10^3/uL PT 11.1 (9.4-12.5) SECONDS INR 1.02 (0.8-3.0) APTT 25.5 (25.1-36.5) SECONDS Sodium (137-145) mmol/L Sodium Direct 136 L (138-146) mmol/L Potassium 4.1 (3.5-4.9) mmol/L Chloride 99 (98-109) mmol/L Carbon Dioxide 26 (24-29) mmol/L Anion Gap (5-15) MEQ/L BUN (7-17) mg/dL Venous BUN 36 H (8-26) mg/dL Creatinine 1.0 (0.6-1.3) mg/dL Estimated GFR ML/MIN Glucose 252 H (70-105) mg/dL POC Glucometer (74 to 106) mg/dL Calcium (8.4-10.2) mg/dL Ionized Calcium 1.19 (1.12-1.32) mmol/L Total Bilirubin (0.2-1.3) mg/dL AST (14-36) U/L ALT (0-35) U/L Alkaline Phosphatase (38-126) U/L Troponin (0.00-0.03) ng/mL Troponin I (0.000-0.034) ng/mL Serum Total Protein (6.3-8.2) g/dL Albumin (3.5-5.0) g/dL Urine Color (Yellow) Urine Appearance (Clear) Urine pH (4.6-8.0) Ur Specific [place] (1.005-1.030) Urine Protein (Negative) Urine Glucose (UA) (Negative) mg/dL Urine Ketones (Negative) Urine Blood (Negative) Urine Nitrite (Negative) Urine Bilirubin (Negative) Urine Urobilinogen (0.2) mg/dL Ur Leukocyte Esterase (Negative) U Hyaline Cast (Auto) (0-2) /LPF Urine Microscopic RBC (0-5) /HPF Urine Microscopic WBC (0-5) /HPF Ur Epithelial Cells (None Seen) /HPF Urine Bacteria (None Seen) /HPF Urine Culture Reflexed (NO) 10/17/22 10/17/22 10/17/22 Range/Units 12:23 13:32 17:25 WBC (4.0-10.5) x10^3/uL RBC (4.1-5.4) x10^6/uL Hgb (12.0-16.0) g/dL Hct (35-47) % MCV (78-100) fL MCH (26-32) pg MCHC (32-36) g/dL RDW (11.5-14.0) % Plt Count (150-450) x10^3/uL MPV (7.5-11.0) fL Gran % (36.0-66.0) % Immature Gran % (Auto) (0.00-0.4) % Nucleat RBC Rel Count (0.00-0.1) % Eos # (Auto) (0-0.5) x10^3/uL Immature Gran # (Auto) (0.00-0.03) x10^3u/L Absolute Lymphs (auto) (1.0-4.6) x10^3/uL Absolute Monos (auto) (0.0-1.3) x10^3/uL Absolute Nucleated RBC (0.00-0.01) x10^3u/L Lymphocytes % (24.0-44.0) % Monocytes % (0.0-12.0) % Eosinophils % (0.00-5.0) % Basophils % (0.0-0.4) % Absolute Granulocytes (1.4-6.9) x10^3/uL Basophils # (0-0.4) x10^3/uL PT (9.4-12.5) SECONDS INR (0.8-3.0) APTT (25.1-36.5) SECONDS Sodium (137-145) mmol/L Sodium Direct (138-146) mmol/L Potassium (3.5-4.9) mmol/L Chloride (98-109) mmol/L Carbon Dioxide (24-29) mmol/L Anion Gap (5-15) MEQ/L BUN (7-17) mg/dL Venous BUN (8-26) mg/dL Creatinine (0.6-1.3) mg/dL Estimated GFR ML/MIN Glucose (70-105) mg/dL POC Glucometer (74 to 106) mg/dL Calcium (8.4-10.2) mg/dL Ionized Calcium (1.12-1.32) mmol/L Total Bilirubin (0.2-1.3) mg/dL AST (14-36) U/L ALT (0-35) U/L Alkaline Phosphatase (38-126) U/L Troponin 0.00 (0.00-0.03) ng/mL Troponin I < 0.012 (0.000-0.034) ng/mL Serum Total Protein (6.3-8.2) g/dL Albumin (3.5-5.0) g/dL Urine Color Yellow (Yellow) Urine Appearance Clear (Clear) Urine pH 7.0 (4.6-8.0) Ur Specific [place] >=1.030 A (1.005-1.030) Urine Protein Negative (Negative) Urine Glucose (UA) >=1000 A (Negative) mg/dL Urine Ketones 15 A (Negative) Urine Blood Negative (Negative) Urine Nitrite Negative (Negative) Urine Bilirubin Negative (Negative) Urine Urobilinogen 0.2 (0.2) mg/dL Ur Leukocyte Esterase Small A (Negative) U Hyaline Cast (Auto) NONE SEEN (0-2) /LPF Urine Microscopic RBC 0-2 (0-5) /HPF Urine Microscopic WBC 21-50 A (0-5) /HPF Ur Epithelial Cells None Seen (None Seen) /HPF Urine Bacteria Many A (None Seen) /HPF Urine Culture Reflexed YES (NO) 10/17/22 10/17/22 10/18/22 Range/Units 21:35 23:33 03:50 WBC (4.0-10.5) x10^3/uL RBC (4.1-5.4) x10^6/uL Hgb (12.0-16.0) g/dL Hct (35-47) % MCV (78-100) fL MCH (26-32) pg MCHC (32-36) g/dL RDW (11.5-14.0) % Plt Count (150-450) x10^3/uL MPV (7.5-11.0) fL Gran % (36.0-66.0) % Immature Gran % (Auto) (0.00-0.4) % Nucleat RBC Rel Count (0.00-0.1) % Eos # (Auto) (0-0.5) x10^3/uL Immature Gran # (Auto) (0.00-0.03) x10^3u/L Absolute Lymphs (auto) (1.0-4.6) x10^3/uL Absolute Monos (auto) (0.0-1.3) x10^3/uL Absolute Nucleated RBC (0.00-0.01) x10^3u/L Lymphocytes % (24.0-44.0) % Monocytes % (0.0-12.0) % Eosinophils % (0.00-5.0) % Basophils % (0.0-0.4) % Absolute Granulocytes (1.4-6.9) x10^3/uL Basophils # (0-0.4) x10^3/uL PT (9.4-12.5) SECONDS INR (0.8-3.0) APTT (25.1-36.5) SECONDS Sodium (137-145) mmol/L Sodium Direct (138-146) mmol/L Potassium (3.5-4.9) mmol/L Chloride (98-109) mmol/L Carbon Dioxide (24-29) mmol/L Anion Gap (5-15) MEQ/L BUN (7-17) mg/dL Venous BUN (8-26) mg/dL Creatinine (0.6-1.3) mg/dL Estimated GFR ML/MIN Glucose (70-105) mg/dL POC Glucometer 284 H 123 H (74 to 106) mg/dL Calcium (8.4-10.2) mg/dL Ionized Calcium (1.12-1.32) mmol/L Total Bilirubin (0.2-1.3) mg/dL AST (14-36) U/L ALT (0-35) U/L Alkaline Phosphatase (38-126) U/L Troponin (0.00-0.03) ng/mL Troponin I < 0.012 (0.000-0.034) ng/mL Serum Total Protein (6.3-8.2) g/dL Albumin (3.5-5.0) g/dL Urine Color (Yellow) Urine Appearance (Clear) Urine pH (4.6-8.0) Ur Specific [place] (1.005-1.030) Urine Protein (Negative) Urine Glucose (UA) (Negative) mg/dL Urine Ketones (Negative) Urine Blood (Negative) Urine Nitrite (Negative) Urine Bilirubin (Negative) Urine Urobilinogen (0.2) mg/dL Ur Leukocyte Esterase (Negative) U Hyaline Cast (Auto) (0-2) /LPF Urine Microscopic RBC (0-5) /HPF Urine Microscopic WBC (0-5) /HPF Ur Epithelial Cells (None Seen) /HPF Urine Bacteria (None Seen) /HPF Urine Culture Reflexed (NO) 10/18/22 10/18/22 10/18/22 Range/Units 05:39 05:49 07:32 WBC 4.8 (4.0-10.5) x10^3/uL RBC 4.70 (4.1-5.4) x10^6/uL Hgb 11.9 L (12.0-16.0) g/dL Hct 38.2 (35-47) % MCV 81.3 (78-100) fL MCH 25.3 L (26-32) pg MCHC 31.2 L (32-36) g/dL RDW 14.7 H (11.5-14.0) % Plt Count 159 (150-450) x10^3/uL MPV 11.2 H (7.5-11.0) fL Gran % 62.4 (36.0-66.0) % Immature Gran % (Auto) 0.4 (0.00-0.4) % Nucleat RBC Rel Count 0.0 (0.00-0.1) % Eos # (Auto) 0.12 (0-0.5) x10^3/uL Immature Gran # (Auto) 0.02 (0.00-0.03) x10^3u/L Absolute Lymphs (auto) 1.02 (1.0-4.6) x10^3/uL Absolute Monos (auto) 0.58 (0.0-1.3) x10^3/uL Absolute Nucleated RBC 0.00 (0.00-0.01) x10^3u/L Lymphocytes % 21.3 L (24.0-44.0) % Monocytes % 12.1 H (0.0-12.0) % Eosinophils % 2.5 (0.00-5.0) % Basophils % 1.3 (0.0-0.4) % Absolute Granulocytes 2.99 (1.4-6.9) x10^3/uL Basophils # 0.06 (0-0.4) x10^3/uL PT (9.4-12.5) SECONDS INR (0.8-3.0) APTT (25.1-36.5) SECONDS Sodium 138 (137-145) mmol/L Sodium Direct (138-146) mmol/L Potassium 3.9 (3.5-4.9) mmol/L Chloride 102 (98-109) mmol/L Carbon Dioxide 26 (24-29) mmol/L Anion Gap 13.7 (5-15) MEQ/L BUN 24 H (7-17) mg/dL Venous BUN (8-26) mg/dL Creatinine 0.86 (0.6-1.3) mg/dL Estimated GFR > 60.0 ML/MIN Glucose 137 H (70-105) mg/dL POC Glucometer 158 H (74 to 106) mg/dL Calcium 8.7 (8.4-10.2) mg/dL Ionized Calcium (1.12-1.32) mmol/L Total Bilirubin 0.80 (0.2-1.3) mg/dL AST 35 (14-36) U/L ALT 23 (0-35) U/L Alkaline Phosphatase 87 (38-126) U/L Troponin (0.00-0.03) ng/mL Troponin I (0.000-0.034) ng/mL Serum Total Protein 6.8 (6.3-8.2) g/dL Albumin 3.8 (3.5-5.0) g/dL Urine Color (Yellow) Urine Appearance (Clear) Urine pH (4.6-8.0) Ur Specific [place] (1.005-1.030) Urine Protein (Negative) Urine Glucose (UA) (Negative) mg/dL Urine Ketones (Negative) Urine Blood (Negative) Urine Nitrite (Negative) Urine Bilirubin (Negative) Urine Urobilinogen (0.2) mg/dL Ur Leukocyte Esterase (Negative) U Hyaline Cast (Auto) (0-2) /LPF Urine Microscopic RBC (0-5) /HPF Urine Microscopic WBC (0-5) /HPF Ur Epithelial Cells (None Seen) /HPF Urine Bacteria (None Seen) /HPF Urine Culture Reflexed (NO) Micro Results-Entire Visit: Accuchecks Date 10/18/22 Time 08:01 - Radiology Exams Ordered Rad Exams-Entire Visit: Radiology Procedures Category Date Time Status CHEST 2 VIEWS (PA AND LAT) Stat Exams 10/17/22 11:[address] ANGIOGRAPHY NECK [CT] Stat Exams 10/17/22 11:02 Completed CTA HEAD W AND/OR WO CONTRAST [CT] Stat Exams 10/17/22 11:03 Completed MRI BRAIN W/O CONTRAST [MRI] Stat Exams 10/17/22 13:22 Completed Discharge Exam General Appearance: no apparent distress Neurologic Exam: alert, oriented x 3, 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, nml station & gait, No motor deficits, No sensory deficit Eye Exam: PERRL, EOMI, eyes nml inspection Neck Exam: normal inspection, non-tender, supple, full range of motion Respiratory Exam: normal breath sounds, lungs clear, No respiratory distress Cardiovascular Exam: regular rate/rhythm, normal heart sounds Gastrointestinal/Abdomen Exam: soft, No tenderness, No mass Extremity Exam: normal inspection, normal range of motion Skin Exam: normal color, warm, dry Final Diagnosis/Problem List - Final Discharge Diagnosis/Problem (1) Vertigo Current Visit: Yes Status: Acute Assessment & Plan: [facility] Code(s): R42 - DIZZINESS AND GIDDINESS (2) UTI (urinary tract infection) Current Visit: Yes Status: Acute Assessment & Plan: urine culture pending, received 1 dose of rocephin, u/a equivocal for uti and patient without symptoms. await culture before any further tx Code(s): N39.0 - URINARY TRACT INFECTION, SITE NOT SPECIFIED - Discharge Disposition: Home, Self-Care Condition: Stable Prescriptions: New Meclizine HCl 25 mg [Antivert 25 mg] 25 mg PO Q6H PRN PRN #30 tablet PRN Reason: Dizziness Fluconazole [Diflucan ] 150 mg PO DAILY #1 tablet Continue Spironolactone 25 mg [Aldactone 25 MG] 50 mg PO DAILY Metformin HCl 500 mg [Glucophage 500 MG] 1,000 mg PO BIDWM Hydrochlorothiazide 25 mg [hydroDIURIL 25 MG] 12.5 mg PO DAILY Glipizide 10 mg [Glucotrol 10 MG] 10 mg PO BID Dapagliflozin Propanediol [Farxiga] 10 mg PO DAILY Clopidogrel Bisulfate [Clopidogrel] 75 mg PO DAILY Amlodipine Besylate [Norvasc] 5 mg PO DAILY Omeprazole Magnesium [Prilosec Otc] 20 mg PO DAILY Follow up with: COTY QUINTANILLA [Primary Care Provider] -
[2022-10-18] MEDS ORDERED: hydroDIURIL 25 MG PO SCH (10:00)
[2022-10-18] MEDS ORDERED: Aldactone 25 MG PO SCH (10:00)
[2022-10-18] MEDS ORDERED: NON-FORMULARY ITEM (Omeprazole Magnesium [Prilosec Otc] 20 MG Tablet.Dr) PO SCH (10:00)
[2022-10-18] MEDS ORDERED: NORVASC 5 MG PO SCH (10:00)
[2022-10-18] MEDS ORDERED: Protonix 40MG Tablet PO SCH (10:00)
--- NOTE | 2022-10-18 10:13 | PCM.DCORD ---
- Discharge Disposition: Home, Self-Care Condition: Stable Prescriptions: New Meclizine HCl 25 mg [Antivert 25 mg] 25 mg PO Q6H PRN PRN #30 tablet PRN Reason: Dizziness Fluconazole [Diflucan ] 150 mg PO DAILY #1 tablet Levofloxacin [Levofloxacin 250MG Tablet] 250 mg PO DAILY #7 tab Continue Spironolactone 25 mg [Aldactone 25 MG] 50 mg PO DAILY Metformin HCl 500 mg [Glucophage 500 MG] 1,000 mg PO BIDWM Hydrochlorothiazide 25 mg [hydroDIURIL 25 MG] 12.5 mg PO DAILY Glipizide 10 mg [Glucotrol 10 MG] 10 mg PO BID Dapagliflozin Propanediol [Farxiga] 10 mg PO DAILY Clopidogrel Bisulfate [Clopidogrel] 75 mg PO DAILY Amlodipine Besylate [Norvasc] 5 mg PO DAILY Omeprazole Magnesium [Prilosec Otc] 20 mg PO DAILY Instructions: Vertigo (a Type of Dizziness) (DC) Additional Instructions: FOLLOW UP WITH YOUR PRIMARY CARE PHYSICIAN IN 1 WEEK, CALL THURSDAY TO MAKE AN APPT HOLD METFORMIN FOR 48 HOURS. MAY RESTART 10/19/22 EVENING take diflucan tab after completing levaquin for UTI, culture is pending. you will be contacted if abx needs changed on thursday after culture finalized. Follow up with: COTY QUINTANILLA [Primary Care Provider] -
== END 2022-10-18 10:04 | disposition home or self-care (01) ==
LOC: ED 10:23 → MED SURG 14:50
PROVIDERS: ADMIT Family Medicine; ATTEND Family Medicine
DX: R42 Dizziness and giddiness (principal); N39.0 Urinary tract infection, site not specified; I10 Essential (primary) hypertension; E11.9 Type 2 diabetes mellitus without complications; Z79.899 Other long term (current) drug therapy; Z20.828 Contact with and (suspected) exposure to other viral communicable diseases
CPT/HCPCS: 36000; 36415; 70496; 70498; 70551; 71046; 80047; 80053; 81001; 82947; 83525; 84484; 85025; 85610; 85730; 87077; 87086; 87186; 93005; 93268; 96360; 99285; G0378; J0696; J1817; A9270-GY

== ENCOUNTER 2025-01-05 11:45 | Day surgery (SDC) | payer MEDICARE ==
[2025-01-05] MEDS ORDERED: CLINDAMYCIN-D5W 900 MG/50 ML*** 900 MG/50 ML BAG IV ONE (11:49)
[2025-01-05] MEDS ORDERED: Transderm Scop 1.5MG Patch ONE (11:49)
[2025-01-05] MEDS ORDERED: TYLENOL EXTRA STRENGTH 500 MG ONE (11:50)
[2025-01-05] MEDS ORDERED: Decadron 4 MG ONE (11:50)
[2025-01-05] MEDS ORDERED: NEURONTIN ONE (11:50)
[2025-01-05] MEDS ORDERED: celeBREX 100 MG ONE (11:50)
[2025-01-05] MEDS ORDERED: Levofloxacin 500MG/100ML D5W 500 MG/100 ML BAG IV ONE (11:50)
[2025-01-05] MEDS: TYLENOL EXTRA STRENGTH 500 MG PO ONE (12:07)
[2025-01-05] MEDS: CLINDAMYCIN-D5W 900 MG/50 ML*** 900 MG/50 ML BAG IV SCH (12:07)
[2025-01-05] MEDS: Levofloxacin 500MG/100ML D5W 500 MG/100 ML BAG IV SCH (12:07)
[2025-01-05] MEDS: celeBREX 100 MG PO ONE (12:08)
[2025-01-05] MEDS: Decadron 4 MG PO ONE (12:08)
[2025-01-05] MEDS: Transderm Scop 1.5MG Patch TOP PRN (12:08)
[2025-01-05] MEDS: NEURONTIN PO ONE (12:09)
[2025-01-05] MEDS: Lactated Ringers 1,000 ML IV SCH (12:10)
[2025-01-05 12:32] VITALS: RESP 18
[2025-01-05] MEDS ORDERED: ROCURONIUM BROMIDE IV ONE (13:35)
[2025-01-05] MEDS ORDERED: Zofran 4 MG/2 ML VIAL ONE (13:35)
[2025-01-05] MEDS ORDERED: propofoL IV ONE (13:35)
[2025-01-05] MEDS ORDERED: SUBLIMAZE 100 MCG/2 ML ONE ×2 (13:35→15:06)
[2025-01-05] MEDS ORDERED: Marcaine Mpf 0.5% Vial 30 Ml ONE (13:50)
[2025-01-05] MEDS ORDERED: Sensorcaine 0.25% 10 ML ONE (13:52)
[2025-01-05] MEDS ORDERED: BRIDION 200MG/2ML IV ONE (14:48)
[2025-01-05] MEDS ORDERED: DILAUDID 0.5 MG/0.5 ML SYRINGE ONE ×2 (15:37→15:51)
[2025-01-05 16:43] VITALS: BP 124/67; PULSE 67; TEMP 97; O2SAT 95
--- NOTE | 2025-01-09 08:42 | OP ---
SURGERY DATE/TIME: 01/05/2025 [id number] PREOPERATIVE DIAGNOSIS: Cholecystitis. POSTOPERATIVE DIAGNOSES: 1) Cholecystitis. 2) Cirrhosis. PROCEDURE: 1) Laparoscopic cholecystectomy. 2) Liver core needle biopsy. SURGEON: Shan Reinoso M.D. ANESTHESIA: General. ESTIMATED BLOOD LOSS: Minimal. CONDITION: Stable. COMPLICATIONS: None. SPECIMENS: 1) Gallbladder. 2) Liver core biopsy. INDICATIONS: The patient presents with episodic right upper abdominal pain. Imaging showing gallstones. Discussed with patient risks of infection, bleeding, injury to nearby structure, hernia, failure to resolve symptoms. She elected to proceed with surgery. FINDINGS: Nodular cirrhosis. Core biopsies x4 taken. Mild chronic inflammation of the gallbladder, critical view, stones. DESCRIPTION OF PROCEDURE AND FINDINGS: The patient brought to the operating room. General anesthesia induced, routinely positioned, prepped, draped, time-out performed. Received a preoperative antibiotic. The 5 mm Optiview trocar placed in the left upper quadrant. Pneumoperitoneum established. An 11 mm right paramedian trocar placed. Two additional 5 mm trocars placed in right upper quadrant. The patient positioned. The cystic duct and cystic artery dissected out. The critical view is clearly obtained. Both were clipped with 5 mm Hem-[id number]-mulu clip, fired, divided. The gallbladder was taken off the liver bed. There was a small hole in the gallbladder. It spilled a few stones which were later extracted. The specimen was placed in a bag and removed through the 11 trocar site. Right upper quadrant reinspected. There was good hemostasis. Clips are in good position. There are no remaining stones. The liver is grossly cirrhotic, nodular. Yury-cut core needle biopsy used to obtain 4 cores, 2 from either side of the liver. Hemostasis achieved with cautery and totally hemostatic satisfactory. The 11 mm trocar closed with 0 Vicryl and interrupted suture passer. Skin was closed with 4-0 Vicryl sutures, Steri-Strips. Sterile dressings applied. All counts correct. The patient tolerated the procedure well. Plans for extubation.
== END 2025-01-05 16:54 | disposition home or self-care (01) ==
LOC: SDC 11:45
PROVIDERS: ATTEND Surgery
DX: K81.9 Cholecystitis, unspecified (principal); K74.60 Unspecified cirrhosis of liver; E11.9 Type 2 diabetes mellitus without complications